=== PATIENT | male | born 1945 ===

== ENCOUNTER 2016-10-27 07:51 | Day surgery (SDC) | payer BC, MEDICARE ==
[2016-10-26 09:50] VITALS: BMI 24.1
[2016-10-27] MEDS ORDERED: Gentamicin 80 mg in 0.9% NS 80 MG/100 ML BAG IVPB ONE (09:43)
[2016-10-27] MEDS ORDERED: cefTRIAXone IV 1 gm in Dextros 50 ML IVPB ONE (09:43)
[2016-10-27] MEDS ORDERED: Lactated Ringer's 1,000 ML IV ONE ×2 (09:50→10:20)
[2016-10-27] MEDS ORDERED: Midazolam 2 MG/2 ML VIAL ONE (09:57)
[2016-10-27] MEDS ORDERED: Propofol 10 mg/ml Inj (20 ML) ONE (09:57)
[2016-10-27] MEDS ORDERED: HYDROmorphone 0.5 mg/0.5 ml ISec IVP PRN (10:29)
[2016-10-27] MEDS ORDERED: Oxycodone/Acetaminophen 5/325 mg Tab PO PRN (10:29)
[2016-10-27] MEDS ORDERED: Lactated Ringer's 1,000 ML IV SCH (10:30)
[2016-10-27 11:39] VITALS: O2SAT 98
[2016-10-27 11:47] VITALS: RESP 18
[2016-10-27 12:15] VITALS: BP 102/58; PULSE 78; TEMP 98
--- NOTE | 2016-10-27 18:27 | HP ---
REASON FOR ADMISSION: Treatment of urinary retention. Mr. Cormier is a very pleasant gentleman who I known for quite some time. 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 He has had always difficulty emptying his bladder, retention, but he has been moseying along well. Most recently, he presented to the [facility] where he called me, but he was already at the [facility] where I do not work. He was in retention with a high BUN and creatinine. There, he saw urologist, Dr. Tsai, who called me about the patient and he has now referred the patient back for further followup care. Labs from there are noted, and he was significantly incapacitated. At that point, he found liters in his bladder, more than 2 liters at least. See the plan as listed below. The patient is now here with his brother and he is here for diagnostic studies with cysto, evacuation of clots, prostate ultrasound, and biopsy. Previously, we had evaluated the patient. He has got significantly abnormal bladder mucosa, but I think this is all related to the Smalls, but I wanted to get a better look. He is here today for further diagnostic studies. PSA is 12. Creatinine is improved. PAST MEDICAL AND SURGICAL: As listed, although essentially are really unremarkable. His medical doctor is Dr. Marty Meeks. In fact, in preparation for this, I saw the patient Monday of this week and he saw Dr. Meeks and we have medical clearance in the chart. Much appreciated. We will send a copy of this note to that doctor also. The past medical and surgical as listed. REVIEW OF SYSTEMS: Essentially unremarkable. SOCIAL HISTORY: Essentially unremarkable MEDICATION: See chart. ALLERGIES: See chart. PHYSICAL EXAMINATION: GENERAL: Well-nourished male, in no apparent distress. Appears to be his stated age or younger, he is actually fairly young to stated age. VITAL SIGNS: Appear within normal limits. LUNGS: Clear. HEART: S1, S2. ABDOMEN: Soft, nontender. : No __02:32__ or discharge. Smalls catheter is in place. I actually put a new 14-Nepalese Smalls catheter. He previously had a larger one. No testicular mass. A 30 g plus prostate. It is really a fairly big prostate. LABS: See chart. DIAGNOSES: 1. Urinary retention. 2. Hematuria. 3. Elevated PSA. 4. Bladder dysfunction. At this point, what we are going to do is do a cysto, wash out any clots, see if there is a need for biopsy. It was difficult to get a great look; and then after this, we are going to plan for a prostate ultrasound and biopsy (I explained normally, I do not do them at the same time, but in this case, I do not want the patient to have too much anesthesia). We are going to actually try to do this with some sedation. Not even an intubated situation. And then we will do an ultrasound and guided biopsy, and then further plans will follow. See the chart for the operative report for separate details. We did an ultrasound-guided biopsy. No real abnormality is appreciated. I would think if the patient is negative on the biopsies to consider *------*. I am concerned about the patient's bladder function. It is large enough to do an open prostatectomy. It is at least 3 cm in length. I will discuss options and the possible advantages, and even if his bladder is not working, he may be *------*, so I will discuss this all with the patient and his brother and then make further plans. Gordy Coelho MD
--- NOTE | 2016-10-28 01:28 | OP ---
PROCEDURE DATE: 10/27/2016 PREOPERATIVE DIAGNOSES: 1. Urinary retention. 2. Elevated PSA. 3. Voiding dysfunction. 4. Nocturia. 5. Incontinence. 6. Renal failure. POSTOPERATIVE DIAGNOSES: 1. Urinary retention. 2. Elevated PSA. 3. Voiding dysfunction. 4. Nocturia. 5. Incontinence. 6. Renal failure. PROCEDURE: Cystoscopy, evacuation of clots, prostate ultrasound, and prostate ultrasound-guided biopsy. SURGEON: Gordy Coelho MD ESTIMATED BLOOD LOSS: Less than 25 mL COMPLICATIONS: There were no complications. DRAIN: 14-english Smalls catheter via the urethra. SPECIMEN SENT: Prostate cores. INDICATIONS: See history and physical for other details. A very pleasant gentleman who is 71 years old, and he is here for the above listed testing. FINDINGS: Normal urethral meatus, no stricture, however, urethra is visually occlusive, large long occlusive prostate about 3 to 4 cm in length. A very heavily trabeculated bladder was noted. The ureteral orifices were difficult to identify. There was a lot of erythema. The prostate on ultrasound and biopsy is really within normal limits. There are no specific hypoechoic lesions. The prostate volume measured to be about 40 mL *------* the exact measurement. DESCRIPTION OF PROCEDURE: After obtaining informed consent, he was placed on the table, routine monitors placed, time-out was called to confirm patient, positioning, etc. We also give the patient antibiotic prophylaxis with both Rocephin and gentamicin. We now began our procedure in the following steps. We started in the front going cysto to prostate biopsy in that order. Cysto: We removed the Smalls catheter, and under sterile technique, we inserted a cystoscope. We used actually a 17-Welsh scope. We introduced the scope via the urethra. We initially noted stricture, urethra was visually occlusive, it was really long, about 3 to 4 cm in length. I saw a heavily trabeculated bladder with a lot of blood. Erythematous delarosa. There was really no specific lesion. I think this is all related to the bladder mucosa to having the Smalls in contact. I cannot identify the ureteral orifices. At this point, we inserted the Smalls catheter by sterile technique. Now, we began ultrasound of the prostate and ultrasound-guided prostate biopsy. We did so in the usual fashion except that we were in the lithotomy instead of the decubitus position; for some, this makes the imaging a little bit different. It volumes to about 40 mL plus. It is difficult to get the exact number. We now began our random biopsies. I did not feel any nodules. We did *------* in left base, left medial apex, right base, right medial apex and sent down 2 bottles, labeled left and right. Post biopsy, rectal exam was within normal limits. I do not see any changes in the Smalls, I did not get the balloon. The patient tolerated well without complications. He was then brought to recovery room in stable condition. Addendum: After this procedure, I will discuss with the patient the possibility of an open prostatectomy with suprapubic approach, the possibility for a PVP GreenLight laser. The disadvantage with each should be to put in the chart for remainder sake. With the patient's bladder having more than 2 L and going into renal failure, it is possible he is better off with an open prostatectomy, and at that time, leave a suprapubic tube in and he can urinate. We have a built-in suprapubic catheter of a large size. Then even so, he would be able to Crede more easily rather than the TURP. I will discuss all these options with the patient. Also the possibility, as I have discussed with the patient before, of getting second opinions. So, further plans will follow. Gordy Coelho MD
== END 2016-10-27 12:10 | disposition home or self-care (01) ==
LOC: C.SDS 07:51
PROVIDERS: ATTEND Urology
DX: N40.1 Benign prostatic hyperplasia with lower urinary tract symptoms (principal); R33.9 Retention of urine, unspecified; N32.89 Other specified disorders of bladder
CPT/HCPCS: 52001; 55706; 88305; 88342; A4358; J0696; J7120

== ENCOUNTER 2016-11-01 11:27 | Day surgery (SDC) | payer BC, MEDICARE ==
[2016-10-26 09:58] VITALS: BMI 24.1
[2016-11-01] MEDS ORDERED: Lidocaine 2% Jelly (Uro-Jet) ONE (12:50)
[2016-11-01] MEDS ORDERED: cefTRIAXone IV 1 gm in Dextros 50 ML IVPB ONE (12:50)
[2016-11-01] MEDS ORDERED: Propofol 10 mg/ml Inj (20 ML) ONE (12:57)
[2016-11-01] MEDS ORDERED: Lactated Ringer's 1,000 ML IV ONE (13:20)
[2016-11-01] MEDS ORDERED: Gentamicin 80 mg in 0.9% NS 80 MG/100 ML BAG IVPB ONE (13:33)
[2016-11-01] MEDS ORDERED: HYDROmorphone 0.5 mg/0.5 ml ISec IVP PRN (14:23)
[2016-11-01] MEDS ORDERED: Lactated Ringer's 1,000 ML IV SCH (14:30)
[2016-11-01] MEDS ORDERED: Oxycodone/Acetaminophen 5/325 mg Tab PO PRN (14:33)
[2016-11-01] MEDS: Piperacillin/Tazobact 3.375 GM in Sodium Chloride 100 ML IVPB SCH (15:30)
[2016-11-01 15:34] LABS: HEMATOCRIT 35.9 % (35.0-51.0); MEAN CORPUSCULAR HEMOGLOBIN 31.2 pg (27.0-31.0); MEAN CORPUSCULAR HGB CONC 33.2 g/dL (33.0-37.0); MEAN PLATELET VOLUME 8.5 fL (7.2-11.7); RED CELL DISTRIBUTION WIDTH 13.5 % (11.5-14.5); WHITE BLOOD COUNT 5.1 K/uL (4.8-10.8)
[2016-11-01 15:46] LABS: CHLORIDE 101 mmol/L (98-107)
[2016-11-01 15:47] LABS: SODIUM 138 mmol/L (132-148)
[2016-11-01 15:49] LABS: AST/SGOT 40 U/L (17-59); BILIRUBIN,TOTAL 0.4 mg/dL (0.2-1.3); BLOOD UREA NITROGEN 25 mg/dL (9-20); CARBON DIOXIDE 26 mmol/L (22-30); GFR AFRICAN-AMERICAN > 60; TOTAL PROTEIN 6.1 g/dL (6.3-8.3)
[2016-11-01 15:50] LABS: ALKALINE PHOSPHATASE 71 U/L (38-126); ALT/SGPT 31 U/L (21-72); CALCIUM 8.4 mg/dl (8.6-10.4); GLUCOSE,RANDOM 105 mg/dL (75-110)
[2016-11-01] MEDS ORDERED: Piperacillin/Tazobact 3.375 GM in Sodium Chloride 100 ML IVPB SCH (16:00)
[2016-11-02] MEDS: Piperacillin/Tazobact 3.375 GM in Sodium Chloride 100 ML IVPB SCH ×3 (00:05→12:31)
--- NOTE | 2016-11-02 05:23 | HP ---
REASON FOR ADMISSION: Treatment of urinary retention. HISTORY OF PRESENT ILLNESS: Mr. Cormier is a very pleasant gentleman who I know quite well. See previously dictated note from last week on 10/27/2016. We did a prostate ultrasound and a biopsy, cystoscopy, evacuation of clots and we noted a visually occlusive prostate of about 3 to 4 cm in length and he states that a with TURP. At that time, we also did a prostate ultrasound and biopsy and there was no cancer. The prostate final pathology is no cancer. UPDATED PROGRESS: After discussing options he is cleared today for a PVP GreenLight laser with TURP. PAST MEDICAL HISTORY: No other changes. MEDICATIONS: Essentially on no medications other than Flomax. FAMILY HISTORY: Father had renal failure and was a dialysis patient. It is very concerning to the patient and the family. SOCIAL HISTORY: He is here today with his daughter. Previously was living with his brother and he is a sales office administrator. He is actively working and he is in good physical shape. He looks like a young man. ALLERGIES: NONE. REVIEW OF SYSTEMS: Essentially unremarkable. No chest pain, weight loss, etc. PHYSICAL EXAMINATION GENERAL: This is a well-nourished male, in no apparent distress. VITAL SIGNS: Appear within normal limits. HEART: S1, S2. LUNGS: Clear. ABDOMEN: Soft, nontender. : Normal phallus without discharge. No testicular mass. There is a Smalls catheter in place draining clear urine. Urine is clear. Catheter is draining well. No testicular mass. On rectal exam, a 30 g plus prostate, soft and smooth. LABORATORY DATA: See chart. DIAGNOSES: 1. Urinary retention. 2. Renal failure. 3. Elevated PSA. 4. Hematuria and voiding dysfunction. PLAN: We discussed the options, risks and benefits. We discussed open prostatectomy. We discussed PVP GreenLight laser with TURP. His prostate is minimal of scraping. So the plan is as follows; 1. We are going to provide the patient with antibiotic prophylaxis. 2. We are going to plan for a PVP GreenLight laser with TURP. We have made arrangements. The other plan is as follows: I discuss with the patient the possibility for it not working given the fact that he came in with such retention and hydronephrosis and also lengthened nature. I also discussed with him very importantly retrograde ejaculation and ejaculatory dysfunction. We discussed risks, benefits, and treatment options. We discussed scars, perforations, etc. All the options were discussed. After discussing them, we are going to plan to proceed. Also the patient has been seeing Dr. Marty Meeks. That is his general medical doctor and we also will keep him in the loop. Gordy Coelho MD cc:
--- NOTE | 2016-11-02 05:23 | OP ---
PROCEDURE DATE: 11/01/2016 PREOPERATIVE DIAGNOSES: Urinary retention, voiding dysfunction, elevated PSA, hematuria, hydronephrosis, renal failure. POSTOPERATIVE DIAGNOSES: Urinary retention, voiding dysfunction, elevated PSA, hematuria, hydronephrosis, renal failure. PROCEDURE: Repeat cystoscopy, PVP GreenLight Laser transurethral resection of prostate.. SURGEON: Dr. Gordy Coelho. ESTIMATED BLOOD LOSS: Less than 25 mL. COMPLICATIONS: None. FINDINGS: After termination of the procedure, we have a wide open prostate from the veru and in. We had good visualization of the ureteral orifices postop. See the picture that is included in the chart. The patient is basically maybe 12 and 13 or 13 and 14. See the chart. The final picture is showing the veru intact. Other findings, the bladder is heavily, heavily trabeculated. There were no bladder tumors identified. for 3-4 cm. The ureteral orifices were identified, particularly more postop, and grossly intact. We worked our way diligently, see the procedure below, at the bladder neck and the veru was intact also. is fairly open. We turned off all the water and made sure there was no bleeding. INDICATIONS: See history and physical. This is a very pleasant gentleman, who is 71 years old, here for the above procedure. We discussed the risks, benefits, and alternatives and after discussing them, he came in now for the above procedure. DESCRIPTION OF PROCEDURE: After obtaining informed consent, the patient was stable, routine monitors were placed and time-out was called to confirm the patient, positioning, etc. The patient was in lithotomy and the Venodyne boots were in place. The patient was given gentamicin 80 mg and also given Rocephin. We introduced the scope under direct vision. I could not really see the ureteral orifices well, although I could see them subsequently. Once we identified our landmarks and the veru origin was identified at about 3 to 4 cm, it was a fairly large prostate. We started at an energy level of 80 at the bladder neck between 5 and 7. I took it down as quickly, meticulously, and as carefully as possible without bleeding noted, left and right side. Very nicely done. We now turned our attention further back more distal, between 5 and 7 still, and then worked our way up 7 and 11 and then we worked our way up to 5 and 1. At this point, I reassessed correction through, I took pictures. These were taken on a picture board. We achieved hemostasis very nicely. Any time we saw bleeding, we did coagulations. It was really working very, very nicely. We continued working diligently, quickly, and worked our way towards the veru. Once at the veru, we were very careful and meticulous. We actually turned the energy level up, first to 120 and then to 140, but out of fear, we worked our way back. Whenever I worked the one before, I also kept it at 120. Did not stay up at 140. At this point, we viewed . There was some anterior tissue. We actually turned our attention towards the anterior now in two ways, one was directly working on it and then the other was by flipping the camera upside down and working up, trying to make sure there was no leaking water backwards and wetting the camera, etc., and we got the top very open nicely. Keeping in mind where our landmarks, bladder neck, etc., are very carefully and meticulously. Now we inspected further and really it was nicely, nicely open. There was no bleeding, turned the water off, and examined closely. Any area that was still not nicely open, we took again with the GreenLight laser. I feel we had a nicely opened prostate. We now inspected the bladder carefully, there were really no abnormalities, and I could see the ureterals much better now. We pulled out the cystoscope and there was a reasonably good flow of urine. I placed a Smalls catheter. We then secured the catheter in place. We had about 50 mL in the balloon with moderate traction and connected to CBI and the urine was actually crystal clear. Overall, the patient tolerated the procedure well without complications and was brought to recovery room in stable condition having tolerated the procedure well without complications. Gordy Coelho MD
[2016-11-02 07:47] LABS: MEAN CELL VOLUME 93.5 fL (80.0-94.0); MEAN CORPUSCULAR HEMOGLOBIN 31.1 pg (27.0-31.0); MEAN CORPUSCULAR HGB CONC 33.3 g/dL (33.0-37.0); MEAN PLATELET VOLUME 8.5 fL (7.2-11.7); RED CELL DISTRIBUTION WIDTH 13.5 % (11.5-14.5); WHITE BLOOD COUNT 7.3 K/uL (4.8-10.8)
[2016-11-02 08:00] LABS: POTASSIUM 4.2 mmol/L (3.6-5.2)
[2016-11-02 08:03] LABS: ALB/GLOB RATIO 1.1 (1.0-2.1); BILIRUBIN,TOTAL 0.5 mg/dL (0.2-1.3); TOTAL PROTEIN 5.9 g/dL (6.3-8.3)
[2016-11-02 08:04] LABS: CALCIUM 8.5 mg/dl (8.6-10.4)
[2016-11-02 08:39] VITALS: BP 126/69; PULSE 71; RESP 18; TEMP 97.8; O2SAT 95
== END 2016-11-02 14:50 | disposition home or self-care (01) ==
LOC: C.SDS 11:27 → C.6T 15:49 → C.SDS 11-02 14:50
PROVIDERS: ATTEND Urology
DX: N40.1 Benign prostatic hyperplasia with lower urinary tract symptoms (principal); R33.8 Other retention of urine; N13.30 Unspecified hydronephrosis
CPT/HCPCS: 36415; 52648; 80053; 85027; C2627; J0696; J1170; J1580; J2543; J7050; J7120

== ENCOUNTER 2016-12-12 14:26 | Inpatient (IN) | payer BC, MEDICARE ==
[2016-12-12 14:26] VITALS: BMI 24.1
--- NOTE | 2016-12-12 15:07 | C.PDOC ---
History Of Present Illness 71 year old male presents to the ED with complaints of urinary retention beginning at 3am today. Patient states he is unable urinate and has blood in the urethra. He notes a prostate procedure one month ago performed by Dr. Tomás Coelho. Patient denies fever, nausea, or vomiting. Time Seen by Provider: 12/12/16 14:59 Chief Complaint (Nursing): Male Genitourinary History Per: Patient History/Exam Limitations: no limitations Onset/Duration Of Symptoms: Hrs (beginning at 3am ) Current Symptoms Are (Timing): Still Present Associated Symptoms: denies: Fever, Chills, Nausea, Vomiting Recent travel outside of the [place]: No Past Medical History Reviewed: Historical Data, Nursing Documentation, Vital Signs Vital Signs: Last Vital Signs Temp 97.5 F L 12/15/16 16:17 Pulse 69 12/15/16 16:17 Resp 20 12/15/16 16:17 BP 107/60 12/15/16 16:17 Pulse Ox 100 12/15/16 16:17 - Medical History PMH: Gall Bladder Disease Surgical History: Cholecystectomy Family History: States: Other Other Family History: Non-contributory. - Social History Hx Alcohol Use: Yes (socially) Hx Substance Use: No Review Of Systems Except As Marked, All Systems Reviewed And Found Negative. Constitutional: Negative for: Fever, Chills Cardiovascular: Negative for: Chest Pain Respiratory: Negative for: Shortness of Breath Gastrointestinal: Negative for: Nausea, Vomiting, Abdominal Pain, Diarrhea Genitourinary: Positive for: Other (Urinary retention. Blood in urethra. ) Physical Exam - Physical Exam Appears: Non-toxic, No Acute Distress Skin: Warm, Dry Head: Atraumatic Eye(s): bilateral: Normal Inspection Oral Mucosa: Moist Neck: Supple Chest: Symmetrical, No Deformity Cardiovascular: Rhythm Regular Respiratory: Normal Breath Sounds, No Rales, No Rhonchi, No Wheezing Gastrointestinal/Abdominal: Soft, No Tenderness, No Guarding, No Rebound, Other (Distended bladder) Male Genital: Other (Olivares in place, draining bloody urine. ) Extremity: Normal ROM, No Tenderness Neurological/Psych: Oriented x3, Normal Speech, Normal Cognition ED Course And Treatment - Laboratory Results Result Diagrams: 12/15/16 08:39 12/15/16 08:39 O2 Sat by Pulse Oximetry: 98 (room air ) Progress Note: Blood work and UA was ordered. At time of evaluation, patient had olivares put in place and states he is feeling better. Medical Decision Making Medical Decision Making: husam Naranjo who will admit Disposition - Disposition Disposition: HOSPITALIZED Disposition Time: 17:56 Condition: STABLE - Clinical Impression Clinical Impression: Urinary retention, Hematuria - Scribe Statement The provider has reviewed the documentation as recorded by the Scribe Emi Hurtado All medical record entries made by the Joey were at my direction and personally dictated by me. I have reviewed the chart and agree that the record accurately reflects my personal performance of the history, physical exam, medical decision making, and the department course for this patient. I have also personally directed, reviewed, and agree with the discharge instructions and disposition.
[2016-12-12 16:07] LABS: BASO % 0.2 % (0.0-2.0); EOS % 0.4 % (0.0-4.0); HEMATOCRIT 34.1 % (35.0-51.0); LYMPH # 0.9 K/uL (1.0-4.3); MEAN CELL VOLUME 92.9 fL (80.0-94.0); MEAN CORPUSCULAR HEMOGLOBIN 31.3 pg (27.0-31.0); MEAN CORPUSCULAR HGB CONC 33.7 g/dL (33.0-37.0); MEAN PLATELET VOLUME 8.3 fL (7.2-11.7); MONO # 0.5 K/uL (0.0-0.8); MONO % 4.7 % (0.0-10.0); PLATELET COUNT 190 K/uL (130-400); RED CELL DISTRIBUTION WIDTH 13.8 % (11.5-14.5); WHITE BLOOD COUNT 10.1 K/uL (4.8-10.8)
[2016-12-12 16:15] LABS: CHLORIDE 107 mmol/L (98-107)
[2016-12-12 16:16] LABS: POTASSIUM 4.2 mmol/L (3.6-5.2); SODIUM 138 mmol/L (132-148)
[2016-12-12 16:18] LABS: ALB/GLOB RATIO 1.2 (1.0-2.1); ALKALINE PHOSPHATASE 75 U/L (38-126); AST/SGOT 16 U/L (17-59); BILIRUBIN,TOTAL 0.4 mg/dL (0.2-1.3); BLOOD UREA NITROGEN 35 mg/dL (9-20); CARBON DIOXIDE 21 mmol/L (22-30); GFR AFRICAN-AMERICAN > 60; TOTAL PROTEIN 6.1 g/dL (6.3-8.3)
[2016-12-12 16:19] LABS: ALT/SGPT 27 U/L (21-72); CALCIUM 8.6 mg/dl (8.6-10.4); GLUCOSE,RANDOM 156 mg/dL (75-110)
[2016-12-12 16:26] LABS: RBC URINE 17271 /hpf (0-3); URINE BACTERIA OCC (<OCC); URINE BILIRUBIN NEGATIVE (NEGATIVE); URINE BLOOD 3+ (NEGATIVE); URINE COLOR Red (YELLOW); URINE GLUCOSE (UA) 1+ mg/dL (Normal); URINE KETONE TRACE mg/dL (NEGATIVE); URINE LEUKOCYTE ESTERASE NEG Leu/uL (Negative); URINE PROTEIN 2+ mg/dL (NEGATIVE); URINE UROBILINOGEN NORMAL mg/dL (0.2-1.0)
[2016-12-12 17:40] LABS: EOSINOPHIL 1 % (0-4); NEUTROPHIL 88 % (50-75); TOTAL CELLS COUNTED 100
--- NOTE | 2016-12-12 18:30 | CP.PCM.HP ---
Past Patient History - Past Medical History & Family History Past Medical History?: Yes - Past Social History Smoking Status: Never Smoked - CARDIAC Hx Cardiac Disorders: Yes Hx Peripheral Vascular Disease: Yes (VARICOSE VEINS RIGHT LEG) - PULMONARY Hx Respiratory Disorders: No - NEUROLOGICAL Hx Neurological Disorder: No - HEENT Hx HEENT Problems: Yes Hx Cataracts: Yes (BILAT) Other/Comment: HX: DETACHED RETINA LEFT EYE - RENAL Hx Chronic Kidney Disease: No - ENDOCRINE/METABOLIC Hx Endocrine Disorders: No - HEMATOLOGICAL/ONCOLOGICAL Hx Blood Disorders: No - INTEGUMENTARY Hx Dermatological Problems: No - MUSCULOSKELETAL/RHEUMATOLOGICAL Hx Musculoskeletal Disorders: No Hx Falls: No - GASTROINTESTINAL Hx Gall Bladder Disease: Yes - GENITOURINARY/GYNECOLOGICAL Hx Genitourinary Disorders: Yes (2 way olivares catheter to leg bag) Hx Prostate Problems: Yes (BPH) Other/Comment: HX: RETENTION - PSYCHIATRIC Hx Substance Use: No - SURGICAL HISTORY Hx Cholecystectomy: Yes - ANESTHESIA Hx Anesthesia: Yes Hx Anesthesia Reactions: No Hx Malignant Hyperthermia: No Meds Allergies/Adverse Reactions: Allergies Allergy/AdvReac Type Severity Reaction Status Date / Time No Known Allergies Allergy Verified 12/12/16 14:40 Physical Exam - Constitutional Appears: Well - Head Exam Head Exam: ATRAUMATIC, NORMAL INSPECTION, NORMOCEPHALIC - ENT Exam ENT Exam: Mucous Membranes Moist, Normal Exam - Neck Exam Neck exam: Positive for: Normal Inspection - Respiratory Exam Respiratory Exam: Decreased Breath Sounds - Cardiovascular Exam Cardiovascular Exam: REGULAR RHYTHM, +S1, +S2 - GI/Abdominal Exam GI & Abdominal Exam: Diminished Bowel Sounds, Soft - Rectal Exam Rectal Exam: Deferred Results - Vital Signs Recent Vital Signs: Last Vital Signs Temp 97.5 F L 12/12/16 14:42 Pulse 98 H 12/12/16 14:42 Resp 20 12/12/16 14:42 BP 152/94 H 12/12/16 14:42 Pulse Ox 98 12/12/16 17:56 - Labs Result Diagrams: 12/12/16 16:04 12/12/16 16:04
[2016-12-12] MEDS ORDERED: Ciprofloxacin 400mg/200ml D5W 400 MG/200 ML BAG IVPB ONE (22:32)
[2016-12-12] MEDS: Ciprofloxacin 400mg/200ml D5W 400 MG/200 ML BAG IVPB SCH (22:37)
[2016-12-13] MEDS ORDERED: Iodixanol 320 MG/ML 100 ML BOTTLE IV ONE (09:59)
[2016-12-13] MEDS: Pantoprazole 40 mg EC Tab PO SCH (10:59)
[2016-12-13] MEDS: Ciprofloxacin 400mg/200ml D5W 400 MG/200 ML BAG IVPB SCH ×2 (11:44→21:49)
--- NOTE | 2016-12-13 12:29 | CT ---
PROCEDURE: CT Abdomen and Pelvis with and without intravenous contrast HISTORY: gross hematuria COMPARISON: CT abdomen and pelvis without contrast performed 09/30/16 TECHNIQUE: Axial images of the abdomen were obtained in the pre contrast, portal venous and delayed phases of enhancement. Coronal and sagittal reformats were generated and reviewed. Contrast dose: 100 cc Visipaque 320 Radiation dose: Total exam DLP = 1999.72 mGy-cm. This CT exam was performed using one or more of the following dose reduction techniques: Automated exposure control, adjustment of the mA and/or kV according to patient size, and/or use of iterative reconstruction technique. FINDINGS: LOWER THORAX: No visible consolidation, pleural effusion, or pneumothorax. LIVER: Unremarkable. GALLBLADDER AND BILE DUCTS: Dilated common bile duct in the setting of cholecystectomy. PANCREAS: Unremarkable. SPLEEN: Unremarkable. ADRENALS: Unremarkable. KIDNEYS AND URETERS: The kidneys enhance symmetrically. No hydronephrosis or obstructing calculus identified. Partially duplicated bilateral renal collecting systems. Bilateral extrarenal pelves. VASCULATURE: No aortic aneurysm. BOWEL: Stomach is nondistended. Lack of oral contrast limits evaluation for bowel pathology. Bowel loops appear within normal limits of caliber without evidence of obstruction. APPENDIX: The appendix appears within normal limits of caliber. No secondary signs of acute appendicitis. PERITONEUM: No significant free fluid. No definite free air. LYMPH NODES: No bulky adenopathy identified. BLADDER: Mildly thick-walled distended urinary bladder. High density material and heterogeneous appearance of the urinary bladder contents, presumably related to blood products. Intraluminal air within the urinary bladder. Smalls catheter present. Suspect left urinary bladder wall diverticulum and probable small right urinary bladder dome diverticulum. Gas is identified within the diverticulum. Several other foci of gas are noted, possibly with in the urinary bladder wall. Emphysematous cystitis is a possibility. Correlate clinically. REPRODUCTIVE: Prostate gland measures approximately 3.7 x 4.9 cm. BONES: Degenerative changes. Osseous demineralization. OTHER FINDINGS: None. IMPRESSION: Mildly thick-walled distended urinary bladder. High density material and heterogeneous appearance of the urinary bladder contents, presumably related to blood products. Intraluminal air within the urinary bladder. Smalls catheter present. Suspect left urinary bladder wall diverticulum and probable small right urinary bladder dome diverticulum. Gas is identified within the diverticulum. Several other foci of gas are noted, possibly with in the urinary bladder wall. Emphysematous cystitis is a possibility. Correlate clinically. Partially duplicated bilateral renal collecting systems. Bilateral extrarenal pelves. No hydronephrosis or obstructing calculi identified. Dilated common bile duct in the setting of cholecystectomy. Additional findings as above.
--- NOTE | 2016-12-13 14:29 | CP.PCM.PN ---
Subjective - Date & Time of Evaluation Date of Evaluation: 12/13/16 Time of Evaluation: 09:20 - Subjective Subjective: clinically same Objective - Vital Signs/Intake and Output Vital Signs (last 24 hours): Temp Pulse Resp BP Pulse Ox 97.5 F L 73 20 121/74 98 12/13/16 08:41 12/13/16 08:41 12/13/16 08:41 12/13/16 08:41 12/13/16 08:41 Intake and Output: 12/13/16 12/13/16 06:59 18:59 Intake Total 8750 Output Total 7800 Balance 950 - Medications Medications: Current Medications Ciprofloxacin (Cipro 400mg/200ml Dsw) 400 mg in 200 mls @ 133 mls/hr IVPB Q12H [facility] Last Admin: 12/13/16 11:44 Dose: 133 mls/hr Pantoprazole Sodium (Protonix Ec Tab) 40 mg PO DAILY [facility] Last Admin: 12/13/16 10:59 Dose: Not Given Tamsulosin HCl (Flomax) 0.4 mg PO DAILY [facility] Last Admin: 12/13/16 10:59 Dose: Not Given - Constitutional Appears: Well - Head Exam Head Exam: ATRAUMATIC, NORMAL INSPECTION, NORMOCEPHALIC - Eye Exam Eye Exam: EOMI, Normal appearance, PERRL Pupil Exam: NORMAL ACCOMODATION, PERRL - ENT Exam ENT Exam: Mucous Membranes Moist, Normal Exam - Neck Exam Neck Exam: Full ROM, Normal Inspection. absent: Lymphadenopathy - Respiratory Exam Respiratory Exam: Decreased Breath Sounds - Cardiovascular Exam Cardiovascular Exam: REGULAR RHYTHM, +S1, +S2 - GI/Abdominal Exam GI & Abdominal Exam: Soft, Diminished Bowel Sounds - Rectal Exam Rectal Exam: Deferred
--- NOTE | 2016-12-13 15:50 | PCM.URO ---
Urology Progress Note - Objective Intake & Output: Intake & Output 12/12/16 12/13/16 12/13/16 18:59 06:59 18:59 Intake Total 8750 Output Total 7800 2300 Balance 950 -2300 Intake: Other 8750 Output: Urine 7800 2300 Urethral (Smalls) 2300 Other: Voiding Method 3-way Smalls with CBI # Bowel Movements 0 Vital Signs: Vital Signs - 24 hr 12/12/16 12/12/16 12/13/16 19:47 23:39 00:00 Temperature 97.7 F 97.9 F 97.7 F Pulse Rate 101 H 90 74 Respiratory 20 20 20 Rate Blood Pressure 127/77 122/71 143/84 O2 Sat by Pulse 96 98 100 Oximetry 12/13/16 12/13/16 12/13/16 00:59 08:41 14:58 Temperature 97.8 F 97.5 F L 97.6 F Pulse Rate 70 73 72 Respiratory 20 20 20 Rate Blood Pressure 128/76 121/74 129/76 O2 Sat by Pulse 96 98 97 Oximetry
[2016-12-13] MEDS ORDERED: Acetaminophen-Codeine 300/30 mg Tab PO PRN (15:52)
[2016-12-13] MEDS ORDERED: Midazolam 2 MG/2 ML VIAL ONE (15:55)
[2016-12-13] MEDS ORDERED: Lactated Ringer's 1,000 ML IV ONE (15:55)
[2016-12-13] MEDS ORDERED: Propofol 10 mg/ml Inj (20 ML) ONE (15:56)
[2016-12-13] MEDS ORDERED: cefTRIAXone IV 1 gm in Dextros 50 ML IVPB ONE (16:06)
[2016-12-13] MEDS ORDERED: HYDROmorphone 0.5 mg/0.5 ml ISec IVP PRN (16:30)
[2016-12-13 18:17] VITALS: RESP 20
[2016-12-14 08:00] LABS: BASO % 0.4 % (0.0-2.0); EOS # 0.4 K/uL (0.0-0.7); HEMATOCRIT 30.2 % (35.0-51.0); LYMPH # 1.5 K/uL (1.0-4.3); LYMPH % 20.4 % (20.0-40.0); MEAN CELL VOLUME 93.8 fL (80.0-94.0); MEAN CORPUSCULAR HEMOGLOBIN 31.8 pg (27.0-31.0); MEAN CORPUSCULAR HGB CONC 33.9 g/dL (33.0-37.0); MEAN PLATELET VOLUME 8.8 fL (7.2-11.7); MONO # 0.8 K/uL (0.0-0.8); MONO % 11.3 % (0.0-10.0); NRBC % 0.1 % (0.0-2.0); WHITE BLOOD COUNT 7.5 K/uL (4.8-10.8)
[2016-12-14 08:09] LABS: CHLORIDE 105 mmol/L (98-107); SODIUM 138 mmol/L (132-148)
[2016-12-14 08:11] LABS: ALB/GLOB RATIO 1.1 (1.0-2.1); ALKALINE PHOSPHATASE 71 U/L (38-126); ALT/SGPT 38 U/L (21-72); AST/SGOT 25 U/L (17-59); BILIRUBIN,TOTAL 0.5 mg/dL (0.2-1.3); BLOOD UREA NITROGEN 18 mg/dL (9-20); CARBON DIOXIDE 27 mmol/L (22-30); GFR AFRICAN-AMERICAN > 60; GLUCOSE,RANDOM 94 mg/dL (75-110); TOTAL PROTEIN 5.7 g/dL (6.3-8.3)
[2016-12-14 08:12] LABS: CALCIUM 8.3 mg/dl (8.6-10.4)
--- NOTE | 2016-12-14 08:16 | PCM.URO ---
Urology Progress Note - Objective Lab Results Last 24 Hours: Laboratory Results - last 24 hr 12/14/16 07:32 WBC 7.5 RBC 3.21 L Hgb 10.2 L Hct 30.2 L MCV 93.8 MCH 31.8 H MCHC 33.9 RDW 14.0 Plt Count 175 MPV 8.8 Neut % (Auto) 62.9 Lymph % (Auto) 20.4 [place] % (Auto) 11.3 H Eos % (Auto) 5.0 H Baso % (Auto) 0.4 Neut # 4.7 Lymph # 1.5 [place] # 0.8 Eos # 0.4 Baso # 0.0 Intake & Output: Intake & Output 12/13/16 12/14/16 12/14/16 18:59 06:59 18:59 Intake Total 3740 Output Total 2500 4875 Balance -2500 -1135 Intake: Oral 240 Other 3500 Output: Urine 2500 4875 Urethral (Smalls) 2300 2375 Other: # Bowel Movements 0 1 Vital Signs: Vital Signs - 24 hr 12/13/16 12/13/16 12/13/16 08:41 14:58 16:48 Temperature 97.5 F L 97.6 F 97.8 F Pulse Rate 73 72 70 Respiratory 20 20 11 L Rate Blood Pressure 121/74 129/76 119/78 O2 Sat by Pulse 98 97 100 Oximetry 12/13/16 12/13/16 12/13/16 17:04 17:19 17:34 Temperature Pulse Rate 63 61 55 L Respiratory 8 L 10 L 9 L Rate Blood Pressure 119/78 114/64 109/60 O2 Sat by Pulse 100 100 100 Oximetry 12/13/16 12/13/16 12/13/16 17:55 18:16 23:25 Temperature 97.2 F L 97.3 F L 98 F Pulse Rate 56 L 60 72 Respiratory 11 L 20 20 Rate Blood Pressure 110/67 131/69 113/69 O2 Sat by Pulse 100 97 97 Oximetry
[2016-12-14 08:42] LABS: PROSTATE SPECIFIC ANTIGEN 2.99 ng/mL (0.00-4.0)
[2016-12-14] MEDS: cefTRIAXone IV 1 gm in Dextros 50 ML IVPB SCH (10:55)
[2016-12-14] MEDS: Pantoprazole 40 mg EC Tab PO SCH (11:39)
[2016-12-14] MEDS: Ciprofloxacin 400mg/200ml D5W 400 MG/200 ML BAG IVPB SCH ×2 (12:20→21:52)
--- NOTE | 2016-12-14 16:39 | CP.PCM.PN ---
Subjective - Date & Time of Evaluation Date of Evaluation: 12/14/16 Time of Evaluation: 16:35 - Subjective Subjective: PROGRESS NOTE. Service for Dr. Francisco Naranjo Pt seen and examined at bedside. No acute distress. No events overnight. Pt is s /p cystoscopy with fulguration. Pt now with CBI. No fevers, chills, vomiting, diarrhea, any other complaints. Urology following. Objective - Vital Signs/Intake and Output Vital Signs (last 24 hours): Temp Pulse Resp BP Pulse Ox 97.9 F 93 H 20 111/79 98 12/14/16 15:49 12/14/16 15:49 12/14/16 15:49 12/14/16 15:49 12/14/16 15:49 Intake and Output: 12/14/16 12/14/16 06:59 18:59 Intake Total 3740 Output Total 4875 Balance -1135 - Medications Medications: Current Medications Acetaminophen/Codeine Phosphate (Tylenol/Codeine 300 Mg/30 Mg) 1 ea PO Q6 PRN PRN Reason: Bladder Spasm Docusate Sodium (Colace) 100 mg PO TID [facility] Last Admin: 12/14/16 14:30 Dose: Not Given Ciprofloxacin (Cipro 400mg/200ml Dsw) 400 mg in 200 mls @ 133 mls/hr IVPB Q12H [facility] Last Admin: 12/14/16 12:20 Dose: 133 mls/hr Ceftriaxone Sodium (Rocephin Iv 1 Gm Duplex) 50 mls @ 100 mls/hr IVPB DAILY [facility] Last Admin: 12/14/16 10:55 Dose: 100 mls/hr Pantoprazole Sodium (Protonix Ec Tab) 40 mg PO DAILY [facility] Last Admin: 12/14/16 11:39 Dose: 40 mg Tamsulosin HCl (Flomax) 0.4 mg PO DAILY [facility] Last Admin: 12/14/16 11:39 Dose: 0.4 mg - Labs Labs: 12/14/16 07:32 12/14/16 07:32 - Constitutional Appears: Non-toxic, No Acute Distress - Head Exam Head Exam: ATRAUMATIC, NORMAL INSPECTION, NORMOCEPHALIC - Eye Exam Eye Exam: EOMI - ENT Exam ENT Exam: Mucous Membranes Moist - Respiratory Exam Respiratory Exam: NORMAL BREATHING PATTERN. absent: Respiratory Distress - Cardiovascular Exam Cardiovascular Exam: +S1, +S2 - GI/Abdominal Exam GI & Abdominal Exam: Soft, Normal Bowel Sounds. absent: Tenderness - Exam Additional comments: Smalls in place. - Neurological Exam Neurological Exam: Alert, Awake, Oriented x3 - Psychiatric Exam Psychiatric exam: Normal Affect, Normal Mood - Skin Skin Exam: Dry, Intact, Normal Color, Warm Assessment and Plan - Assessment and Plan (Free Text) Assessment: This is a 71 yo male with past medical hx of BPH presenting with hematuria and urinary retention 1. Hematuria/urinary retention -s/p cystoscopy with Dr. Coelho -s/p fulguration of blood clots/diverticulum -continue CBI -tylenol/codeine for pain -ceftriaxone 1 g daily -cipro 400 q 12 -colace -flomax .4 daily 2. GI/DVT ppx -scds -protonix daily discussed with Dr. Naranjo.
--- NOTE | 2016-12-14 17:41 | PCM.URO ---
Urology Progress Note - General General: No Complaints, Tolerating Diet - Subjective Abdominal Pain: No Flank Pain: No Nausea: No Vomiting: No Hematuria: No Dsypnea: No Chest Pain: No Fever & Chills: No - Objective Lab Studies: Reviewed Lab Results Last 24 Hours: Laboratory Results - last 24 hr 12/14/16 12/14/16 07:32 07:32 WBC 7.5 RBC 3.21 L Hgb 10.2 L Hct 30.2 L MCV 93.8 MCH 31.8 H MCHC 33.9 RDW 14.0 Plt Count 175 MPV 8.8 Neut % (Auto) 62.9 Lymph % (Auto) 20.4 [place] % (Auto) 11.3 H Eos % (Auto) 5.0 H Baso % (Auto) 0.4 Neut # 4.7 Lymph # 1.5 [place] # 0.8 Eos # 0.4 Baso # 0.0 Sodium 138 Potassium 4.0 Chloride 105 Carbon Dioxide 27 Anion Gap 10 BUN 18 Creatinine 1.1 Est GFR ( Amer) > 60 Est GFR (Non-Af Amer) > 60 Random Glucose 94 Calcium 8.3 L Total Bilirubin 0.5 AST 25 ALT 38 Alkaline Phosphatase 71 Total Protein 5.7 L Albumin 3.0 L Globulin 2.7 Albumin/Globulin Ratio 1.1 Prostate Specific Ag 2.99 Intake & Output: Intake & Output 12/13/16 12/14/16 12/14/16 18:59 06:59 18:59 Intake Total 3740 200 Output Total 2500 4875 800 Balance -2813 -4901 -600 Intake: Oral 240 Other 3500 200 Output: Urine 2500 4875 800 Urethral (Smalls) 2300 2375 Other: # Bowel Movements 0 1 Vital Signs: Vital Signs - 24 hr 12/13/16 12/13/16 12/13/16 17:55 18:16 23:25 Temperature 97.2 F L 97.3 F L 98 F Pulse Rate 56 L 60 72 Respiratory 11 L 20 20 Rate Blood Pressure 110/67 131/69 113/69 O2 Sat by Pulse 100 97 97 Oximetry 12/14/16 12/14/16 08:16 15:49 Temperature 97.8 F 97.9 F Pulse Rate 77 93 H Respiratory 20 20 Rate Blood Pressure 103/64 111/79 O2 Sat by Pulse 97 98 Oximetry - Physical Exam Abdominal Exam: Soft, Non-Tender, Non-Distended Back: No CVA Tenderness Genitalia: Without Inflammation Urine Color: Clear, Light Jennifer - Male Phallus: Normal Scrotum: Normal - Plan Catheter Care: Yes Ambulation - Out of Bed: Yes Intake & Output: Yes See Orders: Yes Additional Information: Imp: doing well. stable p cysto. improved re hematuria (resolved) - Date & Time of Note Date: 12/14/16 Time: 17:40
[2016-12-14 20:24] LABS: TOTAL PSA 3.2 ng/mL (<=4.0)
--- NOTE | 2016-12-14 22:01 | CP.PCM.PN ---
Subjective - Date & Time of Evaluation Date of Evaluation: 12/14/16 Time of Evaluation: 08:20 - Subjective Subjective: clinically same Objective - Vital Signs/Intake and Output Vital Signs (last 24 hours): Temp Pulse Resp BP Pulse Ox 97.9 F 93 H 20 111/79 98 12/14/16 15:49 12/14/16 15:49 12/14/16 15:49 12/14/16 15:49 12/14/16 15:49 Intake and Output: 12/14/16 12/15/16 18:59 06:59 Intake Total 1600 Output Total 4350 Balance -2750 - Medications Medications: Current Medications Acetaminophen/Codeine Phosphate (Tylenol/Codeine 300 Mg/30 Mg) 1 ea PO Q6 PRN PRN Reason: Bladder Spasm Docusate Sodium (Colace) 100 mg PO TID [facility] Last Admin: 12/14/16 17:32 Dose: 100 mg Ciprofloxacin (Cipro 400mg/200ml Dsw) 400 mg in 200 mls @ 133 mls/hr IVPB Q12H [facility] Last Admin: 12/14/16 21:52 Dose: 133 mls/hr Ceftriaxone Sodium (Rocephin Iv 1 Gm Duplex) 50 mls @ 100 mls/hr IVPB DAILY [facility] Last Admin: 12/14/16 10:55 Dose: 100 mls/hr Pantoprazole Sodium (Protonix Ec Tab) 40 mg PO DAILY [facility] Last Admin: 12/14/16 11:39 Dose: 40 mg Tamsulosin HCl (Flomax) 0.4 mg PO DAILY [facility] Last Admin: 12/14/16 11:39 Dose: 0.4 mg - Labs Labs: 12/14/16 07:32 12/14/16 07:32 - Head Exam Head Exam: ATRAUMATIC, NORMAL INSPECTION, NORMOCEPHALIC - Eye Exam Eye Exam: EOMI, Normal appearance, PERRL Pupil Exam: NORMAL ACCOMODATION, PERRL - ENT Exam ENT Exam: Mucous Membranes Moist, Normal Exam - Neck Exam Neck Exam: Full ROM, Normal Inspection. absent: Lymphadenopathy - Respiratory Exam Respiratory Exam: Decreased Breath Sounds - Cardiovascular Exam Cardiovascular Exam: REGULAR RHYTHM, +S1, +S2 - GI/Abdominal Exam GI & Abdominal Exam: Soft, Diminished Bowel Sounds - Rectal Exam Rectal Exam: Deferred
[2016-12-15 08:51] LABS: BASO % 0.5 % (0.0-2.0); EOS # 0.5 K/uL (0.0-0.7); EOS % 8.6 % (0.0-4.0); HEMATOCRIT 32.4 % (35.0-51.0); LYMPH # 1.9 K/uL (1.0-4.3); LYMPH % 34.9 % (20.0-40.0); MEAN CELL VOLUME 94.2 fL (80.0-94.0); MEAN CORPUSCULAR HEMOGLOBIN 31.2 pg (27.0-31.0); MEAN CORPUSCULAR HGB CONC 33.1 g/dL (33.0-37.0); MEAN PLATELET VOLUME 9.1 fL (7.2-11.7); MONO # 0.6 K/uL (0.0-0.8); NRBC % 0.1 % (0.0-2.0); RED CELL DISTRIBUTION WIDTH 14.1 % (11.5-14.5); WHITE BLOOD COUNT 5.4 K/uL (4.8-10.8)
[2016-12-15 09:04] LABS: CHLORIDE 105 mmol/L (98-107)
[2016-12-15 09:05] LABS: POTASSIUM 4.1 mmol/L (3.6-5.2); SODIUM 141 mmol/L (132-148)
[2016-12-15 09:07] LABS: AST/SGOT 22 U/L (17-59); BILIRUBIN,TOTAL 0.5 mg/dL (0.2-1.3); CARBON DIOXIDE 27 mmol/L (22-30); GFR AFRICAN-AMERICAN > 60
[2016-12-15 09:08] LABS: ALB/GLOB RATIO 1.2 (1.0-2.1); ALKALINE PHOSPHATASE 84 U/L (38-126); ALT/SGPT 31 U/L (21-72); BLOOD UREA NITROGEN 14 mg/dL (9-20); CALCIUM 8.5 mg/dl (8.6-10.4); GLUCOSE,RANDOM 100 mg/dL (75-110); TOTAL PROTEIN 6.5 g/dL (6.3-8.3)
--- NOTE | 2016-12-15 09:38 | CP.PCM.PN ---
Subjective - Date & Time of Evaluation Date of Evaluation: 12/15/16 Time of Evaluation: 08:20 - Subjective Subjective: clinically same Objective - Vital Signs/Intake and Output Vital Signs (last 24 hours): Temp Pulse Resp BP Pulse Ox 98.2 F 70 20 116/70 97 12/14/16 23:40 12/14/16 23:40 12/14/16 23:40 12/14/16 23:40 12/14/16 23:40 Intake and Output: 12/15/16 12/15/16 06:59 18:59 Intake Total 500 Output Total 2200 Balance -1700 - Medications Medications: Current Medications Acetaminophen/Codeine Phosphate (Tylenol/Codeine 300 Mg/30 Mg) 1 ea PO Q6 PRN PRN Reason: Bladder Spasm Docusate Sodium (Colace) 100 mg PO TID [facility] Last Admin: 12/14/16 17:32 Dose: 100 mg Ciprofloxacin (Cipro 400mg/200ml Dsw) 400 mg in 200 mls @ 133 mls/hr IVPB Q12H [facility] Last Admin: 12/14/16 21:52 Dose: 133 mls/hr Ceftriaxone Sodium (Rocephin Iv 1 Gm Duplex) 50 mls @ 100 mls/hr IVPB DAILY [facility] Last Admin: 12/14/16 10:55 Dose: 100 mls/hr Pantoprazole Sodium (Protonix Ec Tab) 40 mg PO DAILY [facility] Last Admin: 12/14/16 11:39 Dose: 40 mg Tamsulosin HCl (Flomax) 0.4 mg PO DAILY [facility] Last Admin: 12/14/16 11:39 Dose: 0.4 mg - Labs Labs: 12/15/16 08:39 12/15/16 08:39 - Constitutional Appears: Well - Eye Exam Eye Exam: EOMI, Normal appearance, PERRL Pupil Exam: NORMAL ACCOMODATION, PERRL - ENT Exam ENT Exam: Mucous Membranes Moist, Normal Exam - Neck Exam Neck Exam: Full ROM, Normal Inspection. absent: Lymphadenopathy - Respiratory Exam Respiratory Exam: Decreased Breath Sounds - Cardiovascular Exam Cardiovascular Exam: REGULAR RHYTHM, +S1, +S2 - GI/Abdominal Exam GI & Abdominal Exam: Soft, Diminished Bowel Sounds - Rectal Exam Rectal Exam: Deferred
[2016-12-15] MEDS: cefTRIAXone IV 1 gm in Dextros 50 ML IVPB SCH (09:53)
[2016-12-15] MEDS: Pantoprazole 40 mg EC Tab PO SCH (09:54)
[2016-12-15] MEDS: Ciprofloxacin 400mg/200ml D5W 400 MG/200 ML BAG IVPB SCH (11:19)
--- NOTE | 2016-12-15 11:54 | CP.PCM.PN ---
Subjective - Date & Time of Evaluation Date of Evaluation: 12/15/16 Time of Evaluation: 11:50 - Subjective Subjective: Progress note. Attending: Francisco Naranjo Pt seen and examined at bedside. No acute distress. No events overnight. No fevers, chills, vomiting, diarrhea. Pt off CBI. Objective - Vital Signs/Intake and Output Vital Signs (last 24 hours): Temp Pulse Resp BP Pulse Ox 98.2 F 70 20 116/70 97 12/14/16 23:40 12/14/16 23:40 12/14/16 23:40 12/14/16 23:40 12/14/16 23:40 Intake and Output: 12/15/16 12/15/16 06:59 18:59 Intake Total 500 Output Total 2200 Balance -1700 - Medications Medications: Current Medications Acetaminophen/Codeine Phosphate (Tylenol/Codeine 300 Mg/30 Mg) 1 ea PO Q6 PRN PRN Reason: Bladder Spasm Docusate Sodium (Colace) 100 mg PO TID [facility] Last Admin: 12/15/16 09:54 Dose: 100 mg Ciprofloxacin (Cipro 400mg/200ml Dsw) 400 mg in 200 mls @ 133 mls/hr IVPB Q12H [facility] Last Admin: 12/15/16 11:19 Dose: 133 mls/hr Ceftriaxone Sodium (Rocephin Iv 1 Gm Duplex) 50 mls @ 100 mls/hr IVPB DAILY [facility] Last Admin: 12/15/16 09:53 Dose: 100 mls/hr Pantoprazole Sodium (Protonix Ec Tab) 40 mg PO DAILY [facility] Last Admin: 12/15/16 09:54 Dose: 40 mg Tamsulosin HCl (Flomax) 0.4 mg PO DAILY [facility] Last Admin: 12/15/16 09:54 Dose: 0.4 mg - Labs Labs: 12/15/16 08:39 12/15/16 08:39 - Constitutional Appears: Non-toxic, No Acute Distress - Head Exam Head Exam: ATRAUMATIC, NORMAL INSPECTION, NORMOCEPHALIC - Eye Exam Eye Exam: EOMI - ENT Exam ENT Exam: Mucous Membranes Moist - Neck Exam Neck Exam: Full ROM, Normal Inspection - Respiratory Exam Respiratory Exam: NORMAL BREATHING PATTERN. absent: Respiratory Distress - Cardiovascular Exam Cardiovascular Exam: +S1, +S2 - GI/Abdominal Exam GI & Abdominal Exam: Soft, Normal Bowel Sounds. absent: Tenderness - Extremities Exam Extremities Exam: Full ROM, Normal Inspection - Neurological Exam Neurological Exam: Alert, Awake, Oriented x3 - Psychiatric Exam Psychiatric exam: Normal Affect, Normal Mood - Skin Skin Exam: Dry, Intact, Normal Color, Warm Assessment and Plan - Assessment and Plan (Free Text) Assessment: This is a 71 yo male with past medical hx of BPH presenting with hematuria and urinary retention 1. Hematuria/urinary retention -s/p cystoscopy with Dr. Coelho -s/p fulguration of blood clots/diverticulum -continue CBI>> discontinued -tylenol/codeine for pain -ceftriaxone 1 g daily -cipro 400 q 12 -colace -flomax .4 daily 2. GI/DVT ppx -scds -protonix daily discussed with Dr. Naranjo.
[2016-12-15 16:18] VITALS: BP 107/60; PULSE 69; TEMP 97.5
--- NOTE | 2016-12-15 17:15 | CP.PCM.PN ---
Subjective - Date & Time of Evaluation Date of Evaluation: 12/15/16 Time of Evaluation: 17:15 - Subjective Subjective: Alert, orientedx3, no sob por chest pains, olivares draining well. Objective - Vital Signs/Intake and Output Vital Signs (last 24 hours): Temp Pulse Resp BP Pulse Ox 97.5 F L 69 20 107/60 100 12/15/16 16:17 12/15/16 16:17 12/15/16 16:17 12/15/16 16:17 12/15/16 16:17 Intake and Output: 12/15/16 12/15/16 06:59 18:59 Intake Total 500 750 Output Total 2200 700 Balance -1700 50 - Medications Medications: Current Medications Acetaminophen/Codeine Phosphate (Tylenol/Codeine 300 Mg/30 Mg) 1 ea PO Q6 PRN PRN Reason: Bladder Spasm Docusate Sodium (Colace) 100 mg PO TID [facility] Last Admin: 12/15/16 13:47 Dose: 100 mg Ciprofloxacin (Cipro 400mg/200ml Dsw) 400 mg in 200 mls @ 133 mls/hr IVPB Q12H [facility] Last Admin: 12/15/16 11:19 Dose: 133 mls/hr Ceftriaxone Sodium (Rocephin Iv 1 Gm Duplex) 50 mls @ 100 mls/hr IVPB DAILY [facility] Last Admin: 12/15/16 09:53 Dose: 100 mls/hr Pantoprazole Sodium (Protonix Ec Tab) 40 mg PO DAILY [facility] Last Admin: 12/15/16 09:54 Dose: 40 mg Tamsulosin HCl (Flomax) 0.4 mg PO DAILY [facility] Last Admin: 12/15/16 09:54 Dose: 0.4 mg - Labs Labs: 12/15/16 08:39 12/15/16 08:39 Assessment and Plan - Assessment and Plan (Free Text) Assessment: Patient admitted with urinary retention , seen and examined. Alert and orientedx3, denies any pain. Olivares catheter draining well and clear. Cleared by DR Coelho for discharge home, to follow up in his office in 1 week. D/W DR Rohan Naranjo, discharged home with olivares today. Home care arranged for olivares care by case technician.
[2016-12-17 18:27] VITALS: O2SAT 98
--- NOTE | 2016-12-26 08:55 | OP ---
PROCEDURE DATE: PREOPERATIVE DIAGNOSES: 1. Gross hematuria. 2. Urinary retention. 3. Voiding dysfunction. 4. Renal failure. POSTOPERATIVE DIAGNOSES: 1. Gross hematuria. 2. Urinary retention. 3. Voiding dysfunction. 4. Renal failure. PROCEDURE: Cystoscopy, evacuation of ton of clots and fulguration of bleeding sites. COMPLICATIONS: There were no complications. BLOOD LOSS: Less than 25 mL. FINDINGS: 1. Normal anterior urethra. No strictures on reviewing and it has opened nicely. 2. Postsurgical, there is some bleeding noted from the prostatic areas, we fulgurated these areas. We evacuated all the clots. There is no bladder tumor identified. There is no bleeding from the ureteral orifice. INDICATIONS: Again, see history and physical for further details. Very pleasant gentleman with an emergency here who had a previous history of TURP. Originally, the patient has some longstanding voiding dysfunction, but he presented to the medical center at the [facility]] and then he eventually back under my care. Of note, the patient at that time was in retention and we eventually did a PVP GreenLight laser TURP. He has been voiding fine. We subsequently did followup imaging and ultrasound when he was empty. He presents now with gross hematuria with voiding dysfunction, retention and gross hematuria. The patient is here for the above listed procedure. Findings as mentioned above. There is just some bleeding from the prostatic area. Nothing within the bladder. At the termination of the procedure, we will leave a dry Smalls catheter with an indwelling with a little bit of traction and a completely clear irrigant. PROCEDURE IN DETAIL: After discussing options with the patient the patient is bleeding very heavily and there has been clot retention. We introduced the cystoscopy via the urethra without difficulty. Normal anterior urethra. No strictures and the verumontanum is fairly well open. What was noted there were some bleeding sites within the prostatic urethral bladder neck region. Nothing within the urinary bladder. We now fulgurated with the Bovie about 150 on coag, we did it till we got the urine clear. Overall, the patient tolerated this without complication. At this point, I evacuated a ton of clots as mentioned above. We then put a new Smalls and we left on traction. The patient was brought to the recovery room in stable condition with clear urine via the irrigation. Gordy Coelho MD [facility] # [id number]
== END 2016-12-15 18:20 | disposition home or self-care (01) | DRG 718 ==
LOC: C.ER 14:26 → C.9E 18:07 → C.5T 23:27 → C.5S 12-14 09:13
PROVIDERS: ADMIT Internal Medicine Nephrology; ATTEND Internal Medicine Nephrology
PROC: 0T5C8ZZ Destruction of Bladder Neck, Via Natural or Artificial Opening Endoscopic (ICD-10-PCS; principal; 2016-12-12)
PROC: 0TCC8ZZ Extirpation of Matter from Bladder Neck, Via Natural or Artificial Opening Endoscopic (ICD-10-PCS; 2016-12-12)
DX: N40.1 Benign prostatic hyperplasia with lower urinary tract symptoms (principal); R31.0 Gross hematuria; N32.89 Other specified disorders of bladder; R33.8 Other retention of urine; N32.3 Diverticulum of bladder; Z90.49 Acquired absence of other specified parts of digestive tract